=== PATIENT | male | born 1970 | race Two or more races ===

== ENCOUNTER 2025-01-19 08:45 | Inpatient (IN) | payer OTHER ==
[~2025-01-19] VITALS: Ht 160 cm; Wt 70.8 kg
[2025-01-19] MEDS ORDERED: CLONAZEPAM0.5 MG PO (11:27)
[2025-01-19] MEDS ORDERED: LIPITOR40 M1 PO (11:27)
[2025-01-19] MEDS ORDERED: TRAZODONE HCL150 MG PO (11:27)
[2025-01-19] MEDS ORDERED: COZAAR25 MG PO (11:27)
[2025-01-19] MEDS ORDERED: LEVO-T75 MCG PO (11:27)
[2025-01-19] MEDS ORDERED: FLUOROURACIL30 GM TOP (11:28)
[2025-01-19 11:31] VITALS: BP 130/80
[2025-01-27] MEDS ORDERED: BUPIVACAINE HCL/MPF 0.5% 30ML VIAL ONE (06:59)
[2025-01-27] MEDS ORDERED: LIDOCAINE HCL 1%/EPINEPHRINE 20ML VIAL IJ ONE (06:59)
[2025-01-27] MEDS ORDERED: METRONIDAZOLE/SODIUM CHLORIDE 500 MG/100 ML PIGGYBACK IV ONE (07:00)
[2025-01-27] MEDS ORDERED: CEFTRIAXONE SODIUM 2,000 MG VIAL ONE (07:00)
[2025-01-27] MEDS ORDERED: SUGAMMADEX SODIUM 200 MG/2 ML VIAL IV ONE (11:04)
[2025-01-27] MEDS ORDERED: ONDANSETRON HCL 2 MG/ML VIAL IV PRN (11:30)
[2025-01-27] MEDS ORDERED: RINGERS SOLUTION,LACTATED 1,000 ML IV SCH (11:30)
[2025-01-27] MEDS ORDERED: MORPHINE SULFATE 4 MG/ML CARTRIDGE IV PRN (11:30)
[2025-01-27] MEDS ORDERED: OxyCODONE HCL 5 MG TABLET (ROXICODONE) PO PRN (11:30)
[2025-01-27] MEDS ORDERED: ACETAMINOPHEN 500 MG GEL..CAP PO SCH (12:00)
[2025-01-27] MEDS ORDERED: MORPHINE SULFATE 4 MG/ML VIAL IV ONE (13:20)
[2025-01-27] MEDS ORDERED: HYOSCYAMINE SULFATE 0.125 MG TAB.SUBL SL SCH (17:00)
[2025-01-27] MEDS ORDERED: GABAPENTIN 300 MG CAPSULE PO SCH (17:00)
[2025-01-27] MEDS ORDERED: METRONIDAZOLE/SODIUM CHLORIDE 500 MG/100 ML PIGGYBACK IV SCH (17:00)
[2025-01-27 17:38] VITALS: BP 147/72; O2SAT 95
[2025-01-27] MEDS ORDERED: FAMOTIDINE/PF 20 MG/2 ML VIAL IV PUSH SCH (21:00)
[2025-01-27] MEDS ORDERED: CIPROFLOXACIN IN 5 % DEXTROSE 400 MG/200 ML PIGGYBAG IV SCH (21:00)
[2025-01-28 01:19] VITALS: BP 103/58; O2SAT 97
[2025-01-28] MEDS ORDERED: LEVOTHYROXINE SODIUM 75 MCG TABLET PO SCH (06:00)
[2025-01-28 08:05] LABS: BUN CREA RATIO 9.0 (7.0-25.0); CREATININE SERUM 0.82 mg/dL (0.70-1.30); GFR 97.19; GLUCOSE FASTING 104.0 mg/dL (65-100); OSMOLALITY SERUM 281.0 MOSM/KG (275-295)
[2025-01-28 09:00] VITALS: BP 110/80; O2SAT 95
[2025-01-28] MEDS ORDERED: LOSARTAN POTASSIUM 25 MG TABLET PO SCH (09:00)
[2025-01-28] MEDS ORDERED: TAMSULOSIN HCL 0.4 MG CAP PO SCH (09:00)
[2025-01-28] MEDS ORDERED: LACTOBACILLUS ACIDOPHILUS 1 CAP CAP PO SCH (09:00)
[2025-01-28 09:25] LABS: BASO % 0.1 % (0.1-1.2); EOS # 0.01 (0.04-0.54); EOS % 0.1 % (0.7-7.0); LYMPH # 1.67 (1.18-3.74); LYMPH % 13.5 % (19.3-53.1); MEAN PLATELET VOLUME 10.10 fl (9.4-12.4); MONO # 0.79 (0.24-0.82); MONO % 6.4 % (4.7-12.5); NEUT # 9.86 (1.56-6.13); NEUT % 79.4 % (34.0-71.1); RED CELL DISTRIBUTION WIDTH 11.8 % (11.6-14.4)
[2025-01-28 16:11] VITALS: BP 106/61; O2SAT 98
[2025-01-28] MEDS ORDERED: ENOXAPARIN SODIUM 40 MG/0.4 ML SYRINGE SUBCUTANEO SCH (17:00)
[2025-01-28] MEDS ORDERED: CLONAZEPAM 0.5 MG TABLET PO SCH (21:00)
[2025-01-29 01:11] VITALS: BP 127/76; O2SAT 96
[2025-01-29 08:00] VITALS: BP 127/70
[2025-01-29] MEDS ORDERED: TRAZODONE HCL 50 MG TABLET PO SCH (09:00)
[2025-01-29] MEDS ORDERED: ENOXAPARIN SODIUM 40 MG/0.4 ML SYRINGE SUBCUTANEO SCH (09:00)
[2025-01-29 15:50] VITALS: BP 137/68; O2SAT 96
[2025-01-30 00:51] VITALS: BP 103/64; O2SAT 94
[2025-01-30 07:43] VITALS: BP 106/65; O2SAT 91
[2025-01-30] MEDS ORDERED: PAIN RELIEVER500 M2 PO (15:06)
[2025-01-30] MEDS ORDERED: IMODIUM A-D2 MG PO (15:06)
[2025-01-30 16:33] VITALS: BP 121/74; O2SAT 95
== END 2025-01-30 19:50 | disposition home or self-care (01) | DRG 330 ==
LOC: O/R 01-27 06:00 → SURH 01-27 06:00 → SURG 01-27 07:00 → SURH 01-27 12:20
PROVIDERS: ADMIT Surgery; ATTEND Surgery
PROC: 0DBP4ZZ Excision of Rectum, Percutaneous Endoscopic Approach (ICD-10-PCS; 2025-01-27)
PROC: 0DTN4ZZ Resection of Sigmoid Colon, Percutaneous Endoscopic Approach (ICD-10-PCS; 2025-01-27)
PROC: 07BB4ZZ Excision of Mesenteric Lymphatic, Percutaneous Endoscopic Approach (ICD-10-PCS; 2025-01-27)
PROC: 07BC4ZZ Excision of Pelvis Lymphatic, Percutaneous Endoscopic Approach (ICD-10-PCS; 2025-01-27)
PROC: 0DJD8ZZ Inspection of Lower Intestinal Tract, Via Natural or Artificial Opening Endoscopic (ICD-10-PCS; 2025-01-27)
PROC: 0D1B4Z4 Bypass Ileum to Cutaneous, Percutaneous Endoscopic Approach (ICD-10-PCS; principal; 2025-01-27 07:00)
DX: C20 Malignant neoplasm of rectum (principal); K62.5 Hemorrhage of anus and rectum; R59.0 Localized enlarged lymph nodes